=== PATIENT | female | born 1995 | race Two or more races ===

== ENCOUNTER 2018-05-14 00:14 | Inpatient (IN) | payer SELFPAY ==
[~2018-05-14] VITALS: Ht 144.8 cm; Wt 60.3 kg
[2018-05-14] MEDS ORDERED: OXYTOCIN 30 UNIT/500 ML PREMIX 500 ML IV PRN ×4 (00:30→18:00)
[2018-05-14] MEDS ORDERED: NALBUPHINE 10 MG/ML AMPUL. IV PRN (00:30)
[2018-05-14] MEDS ORDERED: MAG HYDROX/ALUMINUM HYD/SIMETH 30 ML ORAL.SUSP PO PRN ×2 (00:30→18:00)
[2018-05-14] MEDS ORDERED: 0.9 % SODIUM CHLORIDE 10 ML DISP.SYRIN. IV PRN ×2 (00:30→18:00)
[2018-05-14] MEDS ORDERED: TERBUTALINE 1 MG/ML VIAL. SQ PRN (00:30)
[2018-05-14] MEDS ORDERED: LIDOCAINE 1% PF 30 ML VIAL. INJ PRN (00:30)
[2018-05-14] MEDS ORDERED: IBUPROFEN 400 MG TABLET. PO PRN (00:30)
[2018-05-14] MEDS ORDERED: ACETAMINOPHEN 325 MG TABLET. PO PRN (00:30)
[2018-05-14] MEDS ORDERED: AMPICILLIN SODIUM 2 GM in IV NORMAL SALINE 100ML 100 ML IV ONE (01:00)
[2018-05-14 01:02] LABS: BILIRUBIN,URINE NEGATIVE (NEG); CLARITY,URINE CLOUDY; COLOR,URINE YELLOW; NITRITE,URINE NEGATIVE (NEG); PH,URINE 7.5; PROTEIN,URINE NEGATIVE (NEG-TRACE); UROBILINOGEN,URINE 0.2 mg/dL (0.2 mg/dL)
[2018-05-14 01:15] LABS: AMNIO PT POSITIVE
[2018-05-14 01:23] LABS: RBC,URINE OCC /HPF (0-2)
[2018-05-14 01:24] LABS: BACTERIA,URINE FEW /HPF (0-FEW); SQUAMOUS EPITHELIAL CELL,UR MOD /LPF
[2018-05-14 01:57] VITALS: BP 102/63
[2018-05-14] MEDS: IV RINGERS,LACTATED 1000ML 1,000 ML IV SCH ×4 (02:18→21:02)
[2018-05-14] MEDS ORDERED: OXYTOCIN 30 UNIT/500 ML PREMIX 500 ML IV SCH (02:19)
[2018-05-14 02:39] LABS: BASO % 0 % (0-3); EOS # 0.2 x10^3/uL (0.0-0.7); EOS % 1 % (0-3); HEMATOCRIT 35.8 % (36.0-47.0); HEMOGLOBIN 12.6 g/dL (12.0-15.5); LYMPH # 2.7 x10^3/uL (1.0-4.8); LYMPH % 22 % (24-48); MEAN CORPUSCULAR HEMOGLOBIN 32 pg (25-35); MEAN CORPUSCULAR HGB CONC 35 g/dL (31-37); MEAN CORPUSCULAR VOLUME 90 fL (79-100); MONO # 1.2 x10^3/uL (0.0-1.1); MONO % 10 % (0-9); NEUT # 8.3 x10^3uL (1.8-7.7); NEUT % 67 % (31-73); PLATELET COUNT 247 x10^3/uL (140-400); RED BLOOD COUNT 3.98 x10^6/uL (3.50-5.40); RED CELL DISTRIBUTION WIDTH 13.8 % (11.5-14.5); WHITE BLOOD COUNT 12.4 x10^3/uL (4.0-11.0)
[2018-05-14] MEDS: AMPICILLIN SODIUM 1 GM in IV NORMAL SALINE 50ML 50 ML IV SCH ×3 (05:51→13:56)
[2018-05-14] MEDS: fentaNYL PF VIAL 100 MCG/2 ML VIAL IV PRN ×2 (09:09→10:33)
[2018-05-14] MEDS ORDERED: ROPIVacaine 0.2% IN 0.9%NACL PF 40 MG/20 ML DISP.SYRIN. ONE (11:49)
[2018-05-14] MEDS ORDERED: L&D EPIDURAL SYRINGE 50 ML ONE (11:50)
[2018-05-14] MEDS ORDERED: L&D EPIDURAL CASSETTE 100 ML EP PRN (12:00)
[2018-05-14] MEDS ORDERED: ePHEDrine PF IN SALINE 50 MG/5 ML DISP.SYRIN IV PRN (12:00)
[2018-05-14] MEDS ORDERED: ONDANSETRON PF 4 MG/2 ML VIAL. IV PRN (12:00)
[2018-05-14] MEDS ORDERED: fentaNYL PF VIAL 100 MCG/2 ML VIAL EPI ONE (12:00)
[2018-05-14] MEDS ORDERED: NALOXONE 0.4 MG/ML VIAL. IV PRN (12:00)
[2018-05-14] MEDS: L&D EPIDURAL SYRINGE 50 ML EPID PRN ×2 (12:28→16:10)
[2018-05-14] MEDS ORDERED: ROPIVacaine 0.2% IN 0.9%NACL PF 40 MG/20 ML DISP.SYRIN. EPID PRN (13:15)
[2018-05-14] MEDS ORDERED: SIMETHICONE 80 MG TAB.CHEW PO PRN (18:00)
[2018-05-14] MEDS ORDERED: MAGNESIUM HYDROXIDE 2,400 MG/30 ML ORAL.SUSP. PO PRN (18:00)
[2018-05-14] MEDS ORDERED: HYDROCORTISONE 1% TOPICAL OINTMENT 30GM TUBE. TP PRN (18:00)
[2018-05-14] MEDS ORDERED: PHENYLEPH/MINERAL OIL/PETROLAT RECTAL OINTMENT 28GM TUBE. RC PRN (18:00)
[2018-05-14] MEDS ORDERED: diphenhydrAMINE HCL 25 MG CAPSULE PO PRN (18:00)
[2018-05-14] MEDS ORDERED: ZOLPIDEM 5 MG TABLET. PO PRN (18:00)
[2018-05-14] MEDS ORDERED: BENZOCAINE 20% TOPICAL AEROSOL SPRAY 57GM CAN. TP PRN (18:00)
--- NOTE | 2018-05-14 18:06 | PDOC ---
VAGINAL DELIVERY DATE DATE: 05/14/18 TIME: 18:03 : 1 EDC: May 16, 2018 VAGINAL DELIVERY: VTX VACCUM ASSISTED: Yes NUMBER OF PULLS 2 PLACENTA: Spontaneous SEX: Male WEIGHT 8#1oz Nuchal Cord: No Amniotic Fluid: Clear PAIN: Epidural EPISIOTOMY: Yes EXTENSION: No EBL 300cc COMPLICATIONS none CONDITION Stable Signs of Intrauterine Infectio: None Shoulder Dystocia: No DIAGNOSIS TIJENNY Hines MD May 14, 2018 18:06
--- NOTE | 2018-05-14 18:10 | PDOC1 ---
OB - History Hx of Present Care: Good Care Ultrasounds: Normal mid trimester US Obstetrical Complications: None Medical Complications: None Past Family/Social History * Past Medical, Surgical, Family and Obstetric Histories reviewed from chart. Rubella: Immune RPR/VDRL: Negative HBsAG: Negative OB - Chief Complaint & HPI Date of Admission: Date of Admission: May 14, 2018 at 00:14 Chief Complaint/History : 1 Para: 0 EDC: May 16, 2018 Reason for admission: active labor, rupture of membranes Admission Nurse Assessment Rev: Yes OB - Admission Exam Physical Exam Vitals: VS - Last 72 Hours, by Label Date Time Temp Pulse Resp B/P (MAP) Pulse Ox O2 Delivery O2 Flow Rate FiO2 05/14/18 16:10 18 05/14/18 12:28 18 96 Room Air 05/14/18 10:33 20 Room Air 05/14/18 09:09 18 05/14/18 01:57 98.8 115 18 102/63 (76) 96 Room Air 98.8 Heart: Regular Rate Lungs: Clear, Equal Abdomen: Gravid Extremities: Normal Pulses, No tenderness or swelling Reflexes: Normal Cervical Dilatation: 2cm Effacement: 50% Station: -2 Membranes: Ruptured Amniotic Fluid: Clear Accelerations: Accelerations Present Contractions on Admission: 6-10 Minutes Apart Intensity: Moderate Assessment/Plan Assessment/Plan TIUP SROM Augmentation ACSVD JENNY PANDEY MD May 14, 2018 18:09
[2018-05-14 20:48] LABS: HEMATOCRIT 31.4 % (36.0-47.0); HEMOGLOBIN 10.8 g/dL (12.0-15.5)
[2018-05-14] MEDS: IBUPROFEN 400 MG TABLET. PO PRN (21:03)
--- NOTE | 2018-05-14 21:21 | EKG ---
[facility] [address] [place] [address] Test Date: 2018-05-14 Test Time: 22:16:05 Pat Name: ANNABELLA HAMMONDS Department: Room: 386 Gender: F Digital Media Specialist: YOHANA : 1995 Requested By: JENNY PANDEY Order Number: [id number] Reading MD: Measurements Intervals [place] Rate: 122 P: 0 AR: 122 QRS: 75 QRSD: 68 T: 11 QT: 360 QTc: 514 Interpretive Statements SINUS TACHYCARDIA QRS(T) CONTOUR ABNORMALITY CONSIDER ANTEROLATERAL MYOCARDIAL DAMAGE POSSIBLY ABNORMAL ECG RI6.01 No previous ECG available for comparison
[2018-05-15] MEDS: IV RINGERS,LACTATED 1000ML 1,000 ML IV SCH (01:53)
[2018-05-15] MEDS: IBUPROFEN 400 MG TABLET. PO PRN ×2 (06:41→17:16)
[2018-05-15] MEDS: HYDROcodone/APAP 5/325MG 1 TAB TABLET PO PRN ×2 (09:32→13:19)
[2018-05-15 09:50] VITALS: BP 88/56
[2018-05-15 10:50] VITALS: BP 92/60
[2018-05-15 11:25] LABS: HEMATOCRIT 27.1 % (36.0-47.0); HEMOGLOBIN 9.3 g/dL (12.0-15.5); RED BLOOD COUNT 2.97 x10^6/uL (3.50-5.40); RED CELL DISTRIBUTION WIDTH 14.4 % (11.5-14.5); WHITE BLOOD COUNT 18.5 x10^3/uL (4.0-11.0)
[2018-05-15 11:26] LABS: CALCIUM 8.6 mg/dL (8.5-10.1); CREATININE 0.5 mg/dL (0.6-1.0); GFR 150.3; MAGNESIUM 1.4 mg/dL (1.8-2.4); POTASSIUM 3.8 mmol/L (3.5-5.1)
--- NOTE | 2018-05-15 11:38 | EKG ---
[facility] [address] [place] [address] Test Date: 2018-05-15 Test Time: 11:34:10 Pat Name: ANNABELLA HAMMONDS Department: Room: [facility] Gender: F Senior Strategy Manager: AT : 1995 Requested By: TORRI CHÁVEZ Order Number: [id number] Reading MD: Measurements Intervals [place] Rate: 94 P: 38 CO: 142 QRS: 42 QRSD: 76 T: 6 QT: 368 QTc: 466 Interpretive Statements SINUS RHYTHM NO SPECIFIC ECG ABNORMALITIES RI6.01 No previous ECG available for comparison
--- NOTE | 2018-05-15 12:55 | PDOC2 ---
TORRI CHÁVEZ ACCOUNTING SOFTWARE SPECIALIST 05/15/18 1255: CARDIAC CONSULT DATE OF CONSULT Date of Consult DATE: 05/15/18 TIME: 12:39 REASON FOR CONSULT Reason for Consult: Tachycardia post vaginal delivery REFERRING PHYSICIAN Referring Physician: Kylah SOURCE Source: Chart review, Patient HISTORY OF PRESENT ILLNESS HISTORY OF PRESENT ILLNESS This is a pleasant 23 yo female admitted for complains of breaking her water. She was noted with spontaneous rupture of her amniotic sac in relation to . She is with uncomplicated with health . She had care. She was noted with tachycardia during the vaginal delivery process which then continued on post delivery intermittently and this was also augmented with pitocin. She had epidural for comfort. The labor porocess was about 18 hours. Denies any cardiac disease. No CP, SOA pre and post vaginal delivery. Presently she is comfortable and denies any discomfort. She does breastfeed. PAST SURGICAL HISTORY Past Surgical History: No pertinent history FAMILY HISTORY Family History noncontributory to CV SOCIAL HISTORY Smoke: No ALCOHOL: none Drugs: None Lives: with Family CURRENT MEDICATIONS CURRENT MEDICATIONS Current Medications Medications (Trade) Dose Ordered Sig/Hayes Route PRN Reason Start Time Stop Time Status Last Admin Dose Admin Ropivacaine/ Sodium Chloride (ROPIVacaine 0.2% - 0.9%NACL PF) 40 mg PRN 1X PRN EPID SEE COMMENTS 05/14/18 13:15 05/14/18 13:15 DC 05/14/18 13:10 Ibuprofen (Motrin) 800 mg PRN Q8HRS PRN PO INFLAMMATION/PAIN PREVENTION 05/14/18 18:00 05/15/18 06:41 Benzocaine (Americaine) 1 spray PRN QID PRN TP TOPICAL PAIN 05/14/18 18:00 05/14/18 21:03 Acetaminophen/ Hydrocodone Bitart (Lortab 5/325) 1 tab PRN Q4HRS PRN PO PAIN 05/15/18 07:30 05/15/18 09:32 ALLERGIES ALLERGIES: Coded Allergies: No Known Drug Allergies (Unverified , 05/14/18) PHYSICAL EXAM General: Alert, Oriented X3, Cooperative, No acute distress HEENT: Atraumatic, Mucous membr. moist/pink Lungs: Clear to auscultation, Normal air movement Heart: Regular rate, Normal S1, Normal S2, No murmurs Abdomen: Soft, No tenderness Extremities: No cyanosis, No edema Skin: No breakdown, No significant lesion Neuro: Normal speech, Sensation intact Psych/Mental Status: Mental status NL, Mood NL MUSCULOSKELETAL: Full range of motion without pain VITALS VITALS Vital Signs Date Time Temp Pulse Resp B/P (MAP) Pulse Ox O2 Delivery O2 Flow Rate FiO2 05/15/18 10:50 97.5 94 20 92/60 (71) 97 Room Air 97.5 LABS Lab: Laboratory Tests Test 05/14/18 20:35 05/15/18 07:05 Hemoglobin 10.8 g/dL (12.0-15.5) 9.3 g/dL (12.0-15.5) Hematocrit 31.4 % (36.0-47.0) 27.1 % (36.0-47.0) Mean Corpuscular Hemoglobin Concent 34 g/dL (31-37) 34 g/dL (31-37) White Blood Count 18.5 x10^3/uL (4.0-11.0) Red Blood Count 2.97 x10^6/uL (3.50-5.40) Mean Corpuscular Volume 91 fL (79-100) Mean Corpuscular Hemoglobin 31 pg (25-35) Red Cell Distribution Width 14.4 % (11.5-14.5) Platelet Count 166 x10^3/uL (140-400) Sodium Level 141 mmol/L (136-145) Potassium Level 3.8 mmol/L (3.5-5.1) Chloride Level 105 mmol/L (98-107) Carbon Dioxide Level 26 mmol/L (21-32) Anion Gap 10 (6-14) Blood Urea Nitrogen 2 mg/dL (7-20) Creatinine 0.5 mg/dL (0.6-1.0) Estimated GFR (Cockcroft-Gault) 150.3 Glucose Level 98 mg/dL (70-99) Calcium Level 8.6 mg/dL (8.5-10.1) Magnesium Level 1.4 mg/dL (1.8-2.4) ASSESSMENT/PLAN ASSESSMENT/PLAN 1. Reactive sinus tachycardia: Highest at 150s per documentation. Hgb now 9.3 from 12.6 with BP at borderline. HR regular at 92. 2. Uncomplicated with successful augmented vaginal delivery with healthy : 3. Hypomagnesemia Recommendations 1. Repeat EKG SR without acute changes. BP at low end but asymptomatic. Push fluids. Discussed with RN. 2. Replace Mg with PO. Recheck in AM. Replace as warranted. 3. Nothing further cardiac dodge at this times. CV stable. MAGUE AU MD 05/15/182118: CARDIAC CONSULT ASSESSMENT/PLAN ASSESSMENT/PLAN Patient seen and examined. Agree with MAIL SORTER's assessment and plan. Sinus tachycardia physiologic, currently improved Agree with IV hydration, replace Mg No further cardiac workup is indicated at this time Thank you for your consultation TORRI CHÁVEZ APRN May 15, 2018 12:55 MAGUE AU MD May 15, 2018 21:19
--- NOTE | 2018-05-15 13:09 | PDOC ---
OB Progress Note Date of Service 05/15/18 Time of Evaluation 1300 Notes Pt. feeling well. SHe denies any CP, SOB or abd pain. Breast feeding without difficulty. Lab Laboratory Tests Test 05/14/18 00:45 05/14/18 02:25 05/14/18 20:35 05/15/18 07:05 Urine Collection Type Unknown Urine Color Yellow Urine Clarity Cloudy Urine pH 7.5 Urine Specific [place] 1.010 Urine Protein Negative mg/dL (NEG-TRACE) Urine Glucose (UA) Negative mg/dL (NEG) Urine Ketones (Stick) Negative mg/dL (NEG) Urine Blood Negative (NEG) Urine Nitrite Negative (NEG) Urine Bilirubin Negative (NEG) Urine Urobilinogen Dipstick 0.2 mg/dL (0.2 mg/dL) Urine Leukocyte Esterase Trace (NEG) Urine RBC Occ /HPF (0-2) Urine WBC 1-4 /HPF (0-4) Urine Squamous Epithelial Cells Mod /LPF Urine Bacteria Few /HPF (0-FEW) Amniotic Fluid Swab Test Positive White Blood Count 12.4 x10^3/uL (4.0-11.0) 18.5 x10^3/uL (4.0-11.0) Red Blood Count 3.98 x10^6/uL (3.50-5.40) 2.97 x10^6/uL (3.50-5.40) Hemoglobin 12.6 g/dL (12.0-15.5) 10.8 g/dL (12.0-15.5) 9.3 g/dL (12.0-15.5) Hematocrit 35.8 % (36.0-47.0) 31.4 % (36.0-47.0) 27.1 % (36.0-47.0) Mean Corpuscular Volume 90 fL (79-100) 91 fL (79-100) Mean Corpuscular Hemoglobin 32 pg (25-35) 31 pg (25-35) Mean Corpuscular Hemoglobin Concent 35 g/dL (31-37) 34 g/dL (31-37) 34 g/dL (31-37) Red Cell Distribution Width 13.8 % (11.5-14.5) 14.4 % (11.5-14.5) Platelet Count 247 x10^3/uL (140-400) 166 x10^3/uL (140-400) Neutrophils (%) (Auto) 67 % (31-73) Lymphocytes (%) (Auto) 22 % (24-48) Monocytes (%) (Auto) 10 % (0-9) Eosinophils (%) (Auto) 1 % (0-3) Basophils (%) (Auto) 0 % (0-3) Neutrophils # (Auto) 8.3 x10^3uL (1.8-7.7) Lymphocytes # (Auto) 2.7 x10^3/uL (1.0-4.8) Monocytes # (Auto) 1.2 x10^3/uL (0.0-1.1) Eosinophils # (Auto) 0.2 x10^3/uL (0.0-0.7) Basophils # (Auto) 0.0 x10^3/uL (0.0-0.2) Sodium Level 141 mmol/L (136-145) Potassium Level 3.8 mmol/L (3.5-5.1) Chloride Level 105 mmol/L (98-107) Carbon Dioxide Level 26 mmol/L (21-32) Anion Gap 10 (6-14) Blood Urea Nitrogen 2 mg/dL (7-20) Creatinine 0.5 mg/dL (0.6-1.0) Estimated GFR (Cockcroft-Gault) 150.3 Glucose Level 98 mg/dL (70-99) Calcium Level 8.6 mg/dL (8.5-10.1) Magnesium Level 1.4 mg/dL (1.8-2.4) Laboratory Tests Test 05/14/18 20:35 05/15/18 07:05 Hemoglobin 10.8 g/dL (12.0-15.5) 9.3 g/dL (12.0-15.5) Hematocrit 31.4 % (36.0-47.0) 27.1 % (36.0-47.0) Mean Corpuscular Hemoglobin Concent 34 g/dL (31-37) 34 g/dL (31-37) White Blood Count 18.5 x10^3/uL (4.0-11.0) Red Blood Count 2.97 x10^6/uL (3.50-5.40) Mean Corpuscular Volume 91 fL (79-100) Mean Corpuscular Hemoglobin 31 pg (25-35) Red Cell Distribution Width 14.4 % (11.5-14.5) Platelet Count 166 x10^3/uL (140-400) Sodium Level 141 mmol/L (136-145) Potassium Level 3.8 mmol/L (3.5-5.1) Chloride Level 105 mmol/L (98-107) Carbon Dioxide Level 26 mmol/L (21-32) Anion Gap 10 (6-14) Blood Urea Nitrogen 2 mg/dL (7-20) Creatinine 0.5 mg/dL (0.6-1.0) Estimated GFR (Cockcroft-Gault) 150.3 Glucose Level 98 mg/dL (70-99) Calcium Level 8.6 mg/dL (8.5-10.1) Magnesium Level 1.4 mg/dL (1.8-2.4) Medications Current Medications Sodium Chloride (Normal Saline Flush) 3 ml QSHIFT PRN IV AFTER MEDS AND BLOOD DRAWS; Start 05/14/18 at 00:30 Ringer's Solution 1,000 ml @ 125 mls/hr Q8H IV Last administered on at 01:53; Start 05/14/18 at 00:19 Nalbuphine HCl (Nubain) 10 mg PRN Q1HR PRN IV Severe labor pain; Start at 00:30 Fentanyl Citrate (Fentanyl 2ml Vial) 100 mcg PRN Q30MIN PRN IV Severe pain Last administered on 05/14/18at 10:33; Start 05/14/18 at 00:30 Acetaminophen (Tylenol) 650 mg PRN Q6HRS PRN PO MILD PAIN / TEMP; Start at 00:30; Stop 05/14/18 at 18:11; Status DC Al Hydroxide/Mg Hydroxide (Mylanta Plus Xs) 30 ml PRN Q4HRS PRN PO HEARTBURN / GAS; Start 05/14/18 at 00:30; Stop 05/14/18 at 18:11; Status DC Terbutaline Sulfate (Brethine) 0.25 mg 1X PRN PRN SQ SEE COMMENTS; Start at 00:30; Stop 05/15/18 at 00:29; Status DC Lidocaine HCl (Xylocaine 1% Pf 30ml Vial) 30 ml 1X PRN PRN INJ SEE COMMENTS; Start 05/14/18 at 00:30; Stop 05/16/18 at 00:29 Ampicillin Sodium 2 gm/Sodium Chloride 100 ml @ 200 mls/hr 1X ONCE IV Last administered on 05/14/18at 02:19; Start 05/14/18 at 01:00; Stop 05/14/18 at 01:29 ; Status DC Ampicillin Sodium 1 gm/Sodium Chloride 50 ml @ 100 mls/hr Q4H IV Last administered on 05/14/18at 13:56; Start 05/14/18 at 05:00; Stop 05/14/18 at 19:02 ; Status DC Oxytocin/Sodium Chloride 500 ml @ 0 mls/hr CONT PRN PRN IV Post delivery bleeding Last administered on 05/14/18at 02:25; Start 05/14/18 at 00:30 Ibuprofen (Motrin) 800 mg PRN Q6HRS PRN PO MODERATE PAIN; Start 05/14/18 at 00: 30; Stop 05/14/18 at 18:11; Status DC Oxytocin/Sodium Chloride 500 ml @ 0 mls/hr CONT PRN IV ; Start 05/14/18 at 02: 15; Stop 05/14/18 at 02:21; Status DC Oxytocin/Sodium Chloride 500 ml @ 1 mls/hr CONT IV ; Start 05/14/18 at 02:19; Status UNV Oxytocin/Sodium Chloride 500 ml @ 0 mls/hr CONT PRN IV AUGMENTATION; Start 05/14/18 at 02:30 Ephedrine Sulfate (ePHEDrine PF IN SALINE SYRINGE) 10 mg PRN Q2MIN PRN IV IF SBP<90; Start 05/14/18 at 12:00 Naloxone HCl (Narcan) 0.04 mg PRN Q1MIN PRN IV SEE COMMENTS; Start 05/14/18 at 12:00 Fentanyl Citrate (Fentanyl 2ml Vial) 100 mcg 1X ONCE EPI ; Start 05/14/18 at 12 :00; Stop 05/14/18 at 12:01; Status DC Ropivacaine/ Fentanyl/NS 100 ml @ 14 mls/hr CONT PRN EP PAIN; Start 05/14/18 at 12:00; Status UNV Ondansetron HCl (Zofran) 4 mg PRN Q6HRS PRN IV NAUSEA/VOMITING; Start 05/14/18 at 12:00 Ropivacaine/ Fentanyl/NS 50 ml @ 14 mls/hr CONT PRN EPID PAIN Last administered on 05/14/18at 16:10; Start 05/14/18 at 12:00 Ropivacaine/ Sodium Chloride (ROPIVacaine 0.2% - 0.9%NACL PF) 40 mg STK-MED ONCE .ROUTE ; Start 05/14/18 at 11:49; Stop 05/14/18 at 11:50; Status DC Ropivacaine/ Fentanyl/NS 50 ml @ As Directed STK-MED ONCE .ROUTE ; Start at 11:50; Stop 05/14/18 at 11:51; Status DC Ropivacaine/ Sodium Chloride (ROPIVacaine 0.2% - 0.9%NACL PF) 40 mg PRN 1X PRN EPID SEE COMMENTS Last administered on 05/14/18at 13:10; Start 05/14/18 at 13:15 ; Stop 05/14/18 at 13:15; Status DC Sodium Chloride (Normal Saline Flush) 10 ml QSHIFT PRN IV AFTER MEDS AND BLOOD DRAWS; Start 05/14/18 at 18:00 Oxytocin/Sodium Chloride 500 ml @ 62.5 mls/hr CONT PRN IV SEE I/O RECORD; Start 05/14/18 at 18:00; Stop 05/15/18 at 01:59; Status DC Acetaminophen (Tylenol) 650 mg PRN Q6HRS PRN PO MILD PAIN / TEMP; Start at 18:00 Ibuprofen (Motrin) 800 mg PRN Q8HRS PRN PO INFLAMMATION/PAIN PREVENTION Last administered on 05/15/18at 06:41; Start 05/14/18 at 18:00 Magnesium Hydroxide (Milk Of Magnesia) 2,400 mg PRN DAILY PRN PO CONSTIPATION; Start 05/14/18 at 18:00 Al Hydroxide/Mg Hydroxide (Mylanta Plus Xs) 30 ml PRN Q4HRS PRN PO HEARTBURN / GAS; Start 05/14/18 at 18:00 Simethicone (Gas-X) 80 mg PRN AFTMEALHC PRN PO GAS / BLOATING; Start 05/14/18 at 18:00 Diphenhydramine HCl (Benadryl) 25 mg PRN Q6HRS PRN PO ITCHING; Start 05/14/18 at 18:00 Benzocaine (Americaine) 1 spray PRN QID PRN TP TOPICAL PAIN Last administered on 05/14/18at 21:03; Start 05/14/18 at 18:00 Phenyleph/Shark Oil/Min Oil/Petrol (Preparation H) 1 sharri PRN QID PRN RC RECTAL PAIN; Start 05/14/18 at 18:00 Hydrocortisone (Cortaid) 1 sharri PRN QID PRN TP PERINEAL PAIN; Start 05/14/18 at 18:00 Ferrous Sulfate (Feosol) 325 mg BIDWMEALS PO ; Start 05/15/18 at 08:00 Zolpidem Tartrate (Ambien) 5 mg PRN QHS PRN PO INSOMNIA, MAY REPEAT X1; Start 05/14/18 at 18:00 Info (Do NOT chart on this placeholder) 1 ea 1X PRN PRN MC SEE COMMENTS; Start 05/14/18 at 18:00 Acetaminophen/ Hydrocodone Bitart (Lortab 5/325) 1 tab PRN Q4HRS PRN PO PAIN Last administered on 05/15/18at 09:32; Start 05/15/18 at 07:30 Magnesium Oxide (Magnesium Oxide) 400 mg BID PO ; Start 05/15/18 at 13:30; Stop 05/16/18 at 13:29 Exam Abd: soft, non tender, fundus firm Assessment PPD#1 s/p Transient Tachycardia following delivery; possible due to acute blood loss at time of delivery. Plan of Care: Continue current Tx, Mgmt ANTONIA CABRERA Jr, MD May 15, 2018 13:09
[2018-05-15] MEDS: MAGNESIUM OXIDE 400 MG TABLET PO SCH (13:18)
[2018-05-15] MEDS: FERROUS SULFATE 325 MG TABLET. PO SCH ×2 (13:19→17:14)
[2018-05-15 16:50] VITALS: BP 100/69
[2018-05-15 23:00] VITALS: BP 88/58
[2018-05-16] MEDS: IBUPROFEN 400 MG TABLET. PO PRN (05:03)
[2018-05-16] MEDS: MAGNESIUM OXIDE 400 MG TABLET PO SCH ×2 (05:05→15:15)
[2018-05-16 06:12] VITALS: BP 88/58
[2018-05-16 08:25] VITALS: BP 93/66
[2018-05-16] MEDS: HYDROcodone/APAP 5/325MG 1 TAB TABLET PO PRN (08:25)
[2018-05-16] MEDS: FERROUS SULFATE 325 MG TABLET. PO SCH ×2 (08:25→17:07)
[2018-05-16 12:05] VITALS: BP 91/58
[2018-05-16] MEDS: ACETAMINOPHEN 325 MG TABLET. PO PRN ×2 (12:10→18:54)
--- NOTE | 2018-05-16 13:46 | DISCH ---
DISCHARGE INSTRUCTIONS Condition on Discharge Condition on Discharge: Stable Activity After Discharge Activity Instructions for Disc: Activity as tolerated Lifting Instructions after Dis: No heavy lifting Driving Instructions after Dis: Do not drive today Diet after Discharge Diet after Discharge: Regular Contacting the DRHernando after DC Call your doctor for: Concerns you may have Follow-Up Follow up with: Roland in 6 weeks. ANTONIA CABRERA Jr, MD May 16, 2018 13:46
--- NOTE | 2018-05-16 13:46 | PDOC3 ---
OB DISCHARGE SUMMARY DATE OF ADMISSION: 05/14/18 DATE OF DISCHARGE: 05/16/18 REASON FOR ADMISSION: Onset of labor INTRAPARTUM PROCEDURES: Spontanous Vag Deliv PROCEDURES: Others (Cardiology consult for tachycardia.) DISCHARGE DIAGNOSIS: Term Delivered, Others (cardiac activity normal) DISCHARGE INFORMATION: Activity (ad sung), Diet (regular), Instructions (pelvic rest x 6 wks) HOSPITAL COURSE Term gestation presented in active labor. SHe had uncomplicated delivery. She had persistent tachycardia that required Cardiology evaluation. Cardiac activity normal. Tachycardia resolved and most likely secondary to acute blood loss following delivery. ANTONIA CABRERA Jr, MD May 16, 2018 13:46
[2018-05-16] MEDS ORDERED: FERR325T72 PO (13:50)
[2018-05-16] MEDS ORDERED: IBUP-1027 PO (13:50)
[2018-05-16 16:15] VITALS: BP 92/64
== END 2018-05-16 19:10 | disposition home or self-care (01) | DRG 807 ==
LOC: OBSVTOIN 00:14 → 3 SO LND 00:14 → 3 NORTH 18:59 → 3 SO LND 20:19 → 3 NORTH 05-15 09:50
PROVIDERS: ADMIT Specialist; ATTEND Specialist
PROC: 10D07Z6 Extraction of Products of Conception, Vacuum, Via Natural or Artificial Opening (ICD-10-PCS; principal; 2018-05-14)
PROC: 0W8NXZZ Division of Female Perineum, External Approach (ICD-10-PCS; 2018-05-14)
PROC: 3E0R3BZ Introduction of Anesthetic Agent into Spinal Canal, Percutaneous Approach (ICD-10-PCS; 2018-05-14)
PROC: 00HU33Z Insertion of Infusion Device into Spinal Canal, Percutaneous Approach (ICD-10-PCS; 2018-05-14)
PROC: 0KQM0ZZ Repair Perineum Muscle, Open Approach (ICD-10-PCS; 2018-05-14)
DX: O99.284 Endocrine, nutritional and metabolic diseases complicating childbirth (principal); Z37.0 Single live birth; E83.42 Hypomagnesemia; O99.824 Streptococcus B carrier state complicating childbirth; O90.89 Other complications of the puerperium, not elsewhere classified; R00.0 Tachycardia, unspecified; Z3A.39 39 weeks gestation of pregnancy
CPT/HCPCS: 36415; 80048; 81001; 83735; 84112; 85014; 85018; 85025; 85027; 86850; 86900; 86901; 87086; 93005; J0290; J2590; J2795; J3010; J7120